=== PATIENT | male | born 2000 | race Two or more races ===

== ENCOUNTER 2021-06-02 08:00 | Outpatient (CLI) | payer OTHER ==
[~2021-06-02 08:00] MED LIST: CLARINEX5 MG/TAB; NO TOMA MED.
== END 2021-06-02 08:30 | disposition home or self-care (01) ==
LOC: PPH VACUNA 08:00
PROVIDERS: ATTEND Emergency Medicine Pediatric Emergency Medicine
DX: Z23 Encounter for immunization (principal)

== ENCOUNTER 2022-04-12 14:15 | Outpatient (CLI) | payer OTHER | END 2022-04-12 14:25 | disposition home or self-care (01) | LOC: PPH VACUNA 14:15 | PROVIDERS: ATTEND Emergency Medicine Pediatric Emergency Medicine | DX: Z23 Encounter for immunization (principal) ==